=== PATIENT | male | born 1995 | race Caucasian/White ===

== ENCOUNTER 2017-08-29 17:30 | Emergency (ER) | payer OTHER ==
[~2017-08-29] VITALS: Ht 175.3 cm; Wt 88.9 kg
[~2017-08-29 17:30] MED LIST: DELTASONE20 M1 PO
[2017-08-29] MEDS ORDERED: AUGMENTIN875 MG PO (19:30)
[2017-08-29 20:25] VITALS: BP 125/89
== END 2017-08-29 20:26 | disposition home or self-care (01) ==
LOC: EME 17:30
DX: S81.852A Open bite, left lower leg, initial encounter (principal); W55.51XA Bitten by raccoon, initial encounter; Y93.01 Activity, walking, marching and hiking; Y92.830 Public park as the place of occurrence of the external cause; F90.9 Attention-deficit hyperactivity disorder, unspecified type
CPT/HCPCS: 99281; 99284